=== PATIENT | female | born 1930 | race Caucasian/White ===

== ENCOUNTER 2016-09-02 19:43 | Emergency (ER) | payer MEDICARE, OTHER ==
[2016-09-02 20:30] LABS: BASOPHILS 0 % (0.0-2.0); EOSINOPHILS 0.4 % (0-7); HEMATOCRIT 32.2 % (36.0-48.0); HEMOGLOBIN 11.1 g/dL (12-16); IMMATURE GRANULOCYTES 0.2 % (0-5); LYMPHOCYTES 9.2 % (15-50); MCH 29.1 pg (26.0-34.0); MCHC 34.5 g/dL (31.0-37.0); MCV 84.3 fL (80.0-100.0); MEAN PLATELET VOLUME 9.7 fL (7.4-10.4); MONOCYTES 6.4 % (2-11); NEUTROPHILS 83.8 % (40-80); PLATELET COUNT 293 10x3/uL (130-400); RBC 3.82 10x6/uL (4.00-5.40); RDW 13.4 % (11.5-14.5); WBC 8.3 10x3/uL (4.8-10.8)
[2016-09-02 20:45] LABS: ALBUMIN 3.6 g/dL (3.4-5.0); ALKALINE PHOSPHATASE 82 U/L (46-116); ALT (SGPT) 23 U/L (10-68); BILIRUBIN - TOTAL 0.87 mg/dL (0.2-1.3); CALC OSMOLALITY 247 mosm/kg (275-300); CALCIUM 8.8 mg/dL (8.5-10.1); CARBON DIOXIDE 20.9 mmol/L (21.0-32.0); CHLORIDE - SERUM 89 mmol/L (98-107); CREATININE - SERUM 1.2 mg/dL (0.6-1.3); GLUCOSE 133 mg/dL (74-106); POTASSIUM - SERUM 4.1 mmol/L (3.5-5.1); PROTEIN - SERUM 7.4 g/dL (6.4-8.2); SODIUM 121 mmol/L (136-145); UREA NITROGEN 18 mg/dL (7-18); eGFR NON AFRICAN AMERICAN 45 mL/min (90-120)
[2016-09-02 20:56] LABS: AMYLASE - SERUM 85 U/L (25-115); CHOLESTEROL, TOTAL 196 mg/dL (0-200); CKMB 4.7 U/L (0.0-3.6); CREATINE KINASE 153 UL (21-215); HDL CHOLESTEROL 49 mg/dL (32-96); LDL CHOLESTEROL 126 mg/dL (0-100); LDL-HDL RATIO 2.6 ratio (1.5-3.5); LIPASE 150 U/L (73-393); PRO BNP 1787 pg/mL (0-450); TRIGLYCERIDE 109 mg/dL (30-200); TROPONIN-I 0.018 ng/mL (0.000-0.060)
== END 2016-09-02 21:20 | disposition home or self-care (01) ==
LOC: D.ER 19:43
PROVIDERS: Family Medicine
DX: R07.89 Other chest pain (principal); I10 Essential (primary) hypertension

== ENCOUNTER 2016-09-05 01:04 | Emergency (ER) | payer MEDICARE, OTHER ==
[2016-09-05 02:02] LABS: BASOPHILS 0.2 % (0.0-2.0); EOSINOPHILS 2.1 % (0-7); HEMOGLOBIN 11.7 g/dL (12-16); IMMATURE GRANULOCYTES 0.5 % (0-5); LYMPHOCYTES 15.2 % (15-50); MCHC 34.4 g/dL (31.0-37.0); MCV 84.2 fL (80.0-100.0); MEAN PLATELET VOLUME 9.8 fL (7.4-10.4); MONOCYTES 14.8 % (2-11); NEUTROPHILS 67.2 % (40-80); PLATELET COUNT 266 10x3/uL (130-400); RBC 4.04 10x6/uL (4.00-5.40); RDW 13.4 % (11.5-14.5); WBC 5.6 10x3/uL (4.8-10.8)
[2016-09-05 02:25] LABS: APPEARANCE HAZY (CLEAR); BILIRUBIN NEGATIVE (NEGATIVE); COLOR YELLOW (YELLOW); GLUCOSE NEGATIVE (NEGATIVE); KETONE NEGATIVE (NEGATIVE); LEUKOCYTE ESTERASE NEGATIVE (NEGATIVE); NITRITE NEGATIVE (NEGATIVE); PROTEIN NEGATIVE (NEGATIVE); UROBILINOGEN NORMAL (NORMAL)
[2016-09-05 02:35] LABS: ALBUMIN 3.7 g/dL (3.4-5.0); ALKALINE PHOSPHATASE 89 U/L (46-116); ALT (SGPT) 32 U/L (10-68); BILIRUBIN - TOTAL 0.62 mg/dL (0.2-1.3); CALC OSMOLALITY 252 mosm/kg (275-300); CALCIUM 8.8 mg/dL (8.5-10.1); CHLORIDE - SERUM 86 mmol/L (98-107); CREATININE - SERUM 1.5 mg/dL (0.6-1.3); GLUCOSE 114 mg/dL (74-106); POTASSIUM - SERUM 3.5 mmol/L (3.5-5.1); PROTEIN - SERUM 7.5 g/dL (6.4-8.2); SODIUM 123 mmol/L (136-145); UREA NITROGEN 25 mg/dL (7-18); eGFR NON AFRICAN AMERICAN 35 mL/min (90-120)
[2016-09-05 02:40] LABS: AMORPHOUS SEDIMENT >1+ /lpf (NONE SEEN); BACTERIA FEW /hpf (NONE SEEN); EPITHELIAL CELLS OCC /hpf (0-5); HYALINE CAST RARE /lpf (NONE SEEN); RED CELLS - URINE OCC /hpf (0-5); WHITE CELLS - URINE OCC /hpf (0-5)
[2016-09-05 02:45] LABS: AMYLASE - SERUM 87 U/L (25-115); CREATINE KINASE 304 UL (21-215); LIPASE 212 U/L (73-393); PRO BNP 436 pg/mL (0-450)
[2016-09-05 02:46] LABS: TROPONIN-I < 0.017 ng/mL (0.000-0.060)
[2016-09-05 02:47] LABS: CKMB 12.1 U/L (0.0-3.6)
[2016-09-05] MEDS ORDERED: FLAGYL500 MG PO (03:02)
[2016-09-06] MEDS ORDERED: ZOFRAN4 MG PO (03:04)
[2016-09-06] MEDS ORDERED: PHENERGAN25 M1 PO (03:05)
[2016-09-06] MEDS ORDERED: HYDROCHLOROTH12.5 M1 (03:06)
[2016-09-06] MEDS ORDERED: BENICAR40 MG PO (03:06)
[2016-09-06] MEDS ORDERED: CIPRO500 MG PO (03:07)
[2016-09-06] MEDS ORDERED: CATAPRES0.1 MG PO (03:12)
[2016-09-06] MEDS ORDERED: ACETAMINOPHEN325 MG PO (03:13)
[2016-09-06 12:32] VITALS: BMI 23.5
== END 2016-09-05 05:05 | disposition home or self-care (01) ==
LOC: D.ER 01:04
PROVIDERS: Family Medicine
DX: K57.92 Diverticulitis of intestine, part unspecified, without perforation or abscess without bleeding (principal); R11.2 Nausea with vomiting, unspecified; R19.7 Diarrhea, unspecified; I10 Essential (primary) hypertension

== ENCOUNTER 2016-09-05 22:58 | Inpatient (IN) | payer MEDICARE, OTHER ==
[~2016-09-05] VITALS: Ht 154.9 cm; Wt 56.5 kg
--- NOTE | ~2016-09-05 | DS ---
PATIENT:ANNEMARIE FIGUEROA :30 MEDICAL RECORD: [id number] DISCHARGE SUMMARY ADMISSION DATE: 09/06/16 DISCHARGE DATE: 09/10/16 DISCHARGE DIAGNOSES: 1. Sigmoid diverticulitis 2. Symptomatic hyponatremia. 3. Hypokalemia due to gastrointestinal losses. 4. Recurrent nausea and vomiting. 5. Hypertension. HOSPITAL COURSE: An 86-year-old female who had been in the ER 3 days in a row was admitted because of continued nausea, vomiting and hyponatremia. She be given antiemetics without improvement developed some vague left lower abdominal pain as well. On admission, she had a white count 6600. Potassium was 4, BUN was 17 and creatinine of 1.3. Sodium was 119. Cardiac enzymes were negative. Chest x-ray was unremarkable. CT of the abdomen showed diverticulosis with diverticulitis in the sigmoid colon, hiatal hernia. She was placed on fluid restriction and normal saline and electrolyte replacement. She was also placed on IV antibiotics for diverticulitis. She gradually improved, sodium has been tapered off and currently this morning, sodium was up to 134, potassium is 3.6. She is feeling much better, tolerating diet. Blood pressure has also multiple intermittently with systolics. Her diuretic was discontinued. She was placed on Bystolic of 2.5 mg daily, and was doing very well from that standpoint. She is discharged in improved condition and to follow up BMP with Dr. Lyons in 1 week. DISCHARGE MEDICATIONS: Bystolic 2.5 mg daily, Celexa 20 mg a day, K-Tab 10 mEq p.o. daily for 4 days and discontinue, Zofran 4 mg q.8 hours for nausea, Benicar 40 mg p.o. daily, Cipro 500 mg p.o. q.12 hours for 7 days and discontinue, clonidine 0.1 q.4 hours p.r.n. systolic greater than 180, Tylenol 325 q.6 p.r.n. DIET: Regular. ACTIVITY: Progress as tolerated. TRANSINT:[id number] Voice Confirmation ID: [id number] DOCUMENT ID: [id number] RUEL CERVANTES MD CC: [id number] DICTATION DATE: 09/10/16 1302 PHYS ASST: 09/11/16 0223 DIS IN 09/10/16 [id number] [place] [address]
[~2016-09-05 22:58] MED LIST: FLAGYL500 MG PO
[2016-09-06 00:39] LABS: BASOPHILS 0.2 % (0.0-2.0); EOSINOPHILS 0.2 % (0-7); HEMATOCRIT 35.3 % (36.0-48.0); HEMOGLOBIN 12.6 g/dL (12-16); IMMATURE GRANULOCYTES 0.5 % (0-5); LYMPHOCYTES 8.8 % (15-50); MCH 29.8 pg (26.0-34.0); MCHC 35.7 g/dL (31.0-37.0); MCV 83.5 fL (80.0-100.0); MEAN PLATELET VOLUME 9.9 fL (7.4-10.4); MONOCYTES 12.9 % (2-11); NEUTROPHILS 77.4 % (40-80); PLATELET COUNT 291 10x3/uL (130-400); RBC 4.23 10x6/uL (4.00-5.40); RDW 13.4 % (11.5-14.5); WBC 6.6 10x3/uL (4.8-10.8)
[2016-09-06 01:20] LABS: ALBUMIN 3.7 g/dL (3.4-5.0); ALKALINE PHOSPHATASE 88 U/L (46-116); ALT (SGPT) 32 U/L (10-68); CALCIUM 8.9 mg/dL (8.5-10.1); CARBON DIOXIDE 22.4 mmol/L (21.0-32.0); CREATINE KINASE 298 UL (21-215); CREATININE - SERUM 1.3 mg/dL (0.6-1.3); GLUCOSE 117 mg/dL (74-106); PRO BNP 557 pg/mL (0-450); PROTEIN - SERUM 7.7 g/dL (6.4-8.2); TROPONIN-I < 0.017 ng/mL (0.000-0.060); eGFR NON AFRICAN AMERICAN 41 mL/min (90-120)
[2016-09-06 01:21] LABS: UREA NITROGEN 17 mg/dL (7-18)
[2016-09-06 01:22] LABS: CALC OSMOLALITY 242 mosm/kg (275-300); CHLORIDE - SERUM 85 mmol/L (98-107); SODIUM 119 mmol/L (136-145)
[2016-09-06 01:23] LABS: CKMB 10.9 U/L (0.0-3.6)
[2016-09-06] MEDS ORDERED: ZOFRAN4 MG PO (03:04)
[2016-09-06] MEDS ORDERED: PHENERGAN25 M1 PO (03:05)
[2016-09-06] MEDS ORDERED: BENICAR40 MG PO (03:06)
[2016-09-06] MEDS ORDERED: HYDROCHLOROTH12.5 M1 (03:06)
[2016-09-06] MEDS ORDERED: CIPRO500 MG PO (03:07)
[2016-09-06] MEDS ORDERED: CATAPRES0.1 MG PO (03:12)
[2016-09-06] MEDS ORDERED: ACETAMINOPHEN325 MG PO (03:13)
[2016-09-06 04:10] VITALS: BP 149/63; BMI 23.5
--- NOTE | 2016-09-06 05:00 | NUR ---
PT ARRIVED TO FLOOR FROM ER VIA STRETCHER. HOME MEDS/LAST DOSES REVIEWED AND DOCUMENTED. HISTORY AND ASSESSMENT COMPLETE PER FLOW-SHEET. GAVE NAUSEA AND PAIN MED ONCE. NO OTHER NEEDS. WILL CONTINUE TO MONITOR.
--- NOTE | 2016-09-06 07:40 | NUR ---
Lying in bed awake, report nausea is somewhat better at this time. Continues with clear liquids. Instructed to call for assist up to bathroom. Verbalized understanding.
[2016-09-06 08:58] VITALS: BP 170/80
--- NOTE | 2016-09-06 10:15 | NUR ---
order noted for SCD hose bilateral, applied and taught patient on purpose. No skin abnormalities assessed to lower ext.
[2016-09-06 12:30] VITALS: BP 181/83
[2016-09-06 12:32] VITALS: Ht 154.9 cm; Wt 56.5 kg
--- NOTE | 2016-09-06 13:15 | NUR ---
BP now 155/73. patient stating she has off and on been seeing " red graffeti" like in front of her eyes. First time reporting this today, states not sure if it came after she had the dose of Phenergan or not. No other complaints. Vital signs stable.
[2016-09-06 13:16] VITALS: BP 155/73
--- NOTE | 2016-09-06 14:49 | NUR ---
lying in bed, states the red "things " are residing. No complaints.
--- NOTE | 2016-09-06 17:15 | NUR ---
Sitting up eating supper, verbalized no problems with her vision. " I don't know what that was all about, I'm not having any problems now."
[2016-09-06 17:21] VITALS: BP 153/63
[2016-09-06 20:00] VITALS: BP 153/69
--- NOTE | 2016-09-06 22:30 | NUR ---
EVELYNEsther STATED HER PAIN WAS 5/10 AND WANTED A TYLENOL. ADMINISTERED PRESCRIBED. NO DISTRESS NOTED. DENIED FURTHER NEEDS INTRUCTED TO CALL IF NEEDED ANYTHING. VERBALIZED UNDERSTANDING. BED LOW, LOCKED, CALL LIGHT IN REACH.
--- NOTE | 2016-09-06 23:09 | NUR ---
PT RESTING QUIETLY WITHOUT C/O OR DISTRESS NOTED. FEW NEEDS VOICED. CALL LIGHT WITHIN REACH. WILL CONT TO MONITOR.
--- NOTE | 2016-09-06 23:32 | NUR ---
REC'D PATIENT LYING IN BED WITH FAMILY AT BEDSIDE. NO DISTRESS NOTED. DENIED PAIN AT THIS TIME. DENIED FURTHER NEEDS AT THIS TIME. INSTRUCTED TO CALL IF NEEDED ANYTHING. VERBALIZED UNDERSTANDING. BED LOW, LOCKED, CALL LIGHT IN REACH.
[2016-09-07] VITALS: BP 116/64
--- NOTE | 2016-09-07 00:37 | NUR ---
PATIENT RESTING IN BED COMFORTABLY. DENIED PAIN AT THIS TIME. DENIED FURTHER NEEDS. NO DISTRESS NOTED. INSTRUCTRED TO CALL IF NEEDED ANYTHING. VERBLALIZED UNDERSTANDING. BED LOW, LOCKED, CALL LIGHT IN REACH.
--- NOTE | 2016-09-07 02:23 | NUR ---
PATIENT IS RESTING IN BED. TOOK HER TO THE BATHROOM EARLIER AND SHE HAD A SMALL BM WHILE I WAS IN THE ROOM HANGING HER MEDS @0150. DENIES FURTHER NEEDS, DENIES PAIN, INSTRUCTED TO CALL IF NEEDED ANYTHING.
[2016-09-07 04:00] VITALS: BP 122/59
[2016-09-07 05:54] LABS: BASOPHILS 0 % (0.0-2.0); EOSINOPHILS 1.1 % (0-7); HEMATOCRIT 32.3 % (36.0-48.0); HEMOGLOBIN 11.2 g/dL (12-16); IMMATURE GRANULOCYTES 0.5 % (0-5); LYMPHOCYTES 16.2 % (15-50); MCH 29.5 pg (26.0-34.0); MCHC 34.7 g/dL (31.0-37.0); MEAN PLATELET VOLUME 9.6 fL (7.4-10.4); MONOCYTES 12.9 % (2-11); NEUTROPHILS 69.3 % (40-80); PLATELET COUNT 247 10x3/uL (130-400); RDW 13.5 % (11.5-14.5); WBC 5.5 10x3/uL (4.8-10.8)
[2016-09-07 06:21] LABS: ANION GAP 13.5 mmol/L (8-16); CARBON DIOXIDE 23.6 mmol/L (21.0-32.0); CREATININE - SERUM 1.3 mg/dL (0.6-1.3); POTASSIUM - SERUM 4.1 mmol/L (3.5-5.1)
--- NOTE | 2016-09-07 07:20 | HP ---
PATIENT: ANNEMARIE FIGUEROA MEDICAL RECORD: [id number] ACCOUNT: [id number] LOCATION:[address] : 30 ADMISSION DATE: 09/06/16 HISTORY AND PHYSICAL EXAMINATION REASON FOR ADMISSION: Nausea, vomiting, and abdominal pain. HISTORY OF PRESENT ILLNESS: The patient is an 86-year-old female, who sees Dr. Loyd Lyons routinely. She states that she had some nausea recently and was scheduled for an upper endoscopy. That was due for today, but she had canceled it. For the last 3 days, she had been to the [facility] ER because of nausea symptoms. She had been given antiemetics without improvement. Her sodium was noted to be low as well and her diuretic was ____. She came back in at 3:00 this morning and the ED physician admitted her. She had some vague abdominal pain. Her stools have become very small in caliber. She seemingly cannot keep oral medications down. She denied fever or blood per rectum. She states also her blood pressure had been quite elevated recently. PAST MEDICAL HISTORY: Multiple colon polyps in the past and last colonoscopy, she states was over 10 years ago, history of GERD, essential hypertension, volatile at times, hyperlipidemia, tachycardia, diverticulosis, hyponatremia, shingles, and Escherichia coli urinary tract infection. PAST SURGICAL HISTORY: She has had cataract surgery OU, otherwise negative. SOCIAL HISTORY: She is , lives with her in [place]. She is retired. She has never smoked or used alcohol. FAMILY HISTORY: Mother at 75 with a stroke. Father of lung cancer. He was a smoker. HOME MEDICATIONS: Phenergan 25 mg tablet q.4 hours for nausea, Benicar 40 mg daily, Catapres 0.1 q.4 hours for systolic over 170, HCTZ 12.5 mg p.o. q.a.m., omeprazole 20 mg daily, vitamin B12 of 1 cc IM weekly, citalopram 20 mg p.o. daily, hydrocodone 5/325 one q.6 hours for pain from shingles, and calcium 500 mg p.o. b.i.d. REVIEW OF SYSTEMS: GENERAL: She has been fatigued without fever and poor appetite. HEENT: No recent visual change, sinus congestion, sore throat, or hearing difficulty. RESPIRATORY: No SOB or cough. CARDIAC: No exertional chest pain, claudication, or edema. GASTROINTESTINAL: She has had nausea with dry heaves. She has had no hematemesis. She has had smaller stool in caliber the last 3 days. There was some vague left lower quadrant abdominal pain. CARDIAC: No exertional chest pain. GENITOURINARY: No dysuria or incontinence. GYNECOLOGIC: No vaginal bleeding. MUSCULOSKELETAL: Denies arthralgias. NEUROLOGICAL: No history of stroke, TIA, or vascular headaches. INTEGUMENTARY: No rash or itching. PSYCHIATRIC: Denies depress mood. PHYSICAL EXAMINATION: HISTORY AND PHYSICAL [id number] ANNEMARIE FIGUEROA VITAL SIGNS: Temperature 97.7 Fahrenheit orally, pulse 79 and regular, respirations 22, blood pressure 149/63 with a sat of 97% on room air. HEENT: Normocephalic. Eyes are clear with cataract lens implants noted. Sclerae nonicteric. Oropharynx shows dry mucous membranes. NECK: Supple. CHEST: Clear. HEART: Regular rate without MGR. PMI appropriate. ABDOMEN: Somewhat distended with normal bowel sounds. She is minimally tender in left lower quadrant over the sigmoid. No rebound noted. EXTREMITIES: No CC&E. NEUROLOGIC: The patient is oriented to person, place, and time. Motor and sensory appears intact. Gait is normal. LABORATORY DATA: Labs shows a white count of 6600 with a slight left shift. H&H is 12.6 and 35.3. Sodium is 119. Potassium is 4, CO2 is 22.4, BUN and creatinine are 17 and 1.3, GFR is 41, and glucose of 117, nonfasting. Lactic acid is 1.4. CPK is 298, CK-MB is 10.9 with a normal troponin of 0.017. ProBNP is 557. DIAGNOSTIC DATA: Chest x-ray is unremarkable. CT of the abdomen showed a small hiatal hernia, diverticuli identified involving the sigmoid colon with some stranding suggesting diverticulitis. ASSESSMENT: 1. Symptomatic hyponatremia. 2. Recurrent nausea and vomiting. 3. Probable sigmoid diverticulitis/diverticulosis. 4. Hypertension. 5. Recent shingles. PLAN: The patient will be admitted for fluid restriction, normal saline for sodium correction. We will hold her diuretics. Empiric IV metronidazole and Cipro for diverticulitis. Further workup pending clinical course. TRANSINT:[id number] Voice Confirmation ID: [id number] DOCUMENT ID: [id number] RUEL CERVANTES MD at 0720 CC: [id number] DICTATION DATE: 09/06/16806 MULTIPLE COIL WINDER: 09/06/16 0911 ADM IN [id number] [place] [address]
--- NOTE | 2016-09-07 07:43 | NUR ---
IV PATENT. SCDS ON. CALL LIGHT IN REACH. WILL CONT. PLAN OF CARE.
[2016-09-07 08:00] VITALS: BP 130/70
--- NOTE | 2016-09-07 08:20 | NUR ---
PT RESTING IN BED WITH EYES OPEN CALL LIGHT IN REACH WILL MONITER
[2016-09-07 12:00] VITALS: BP 157/73
--- NOTE | 2016-09-07 14:41 | NUR ---
PT RESTING IN BED WITH EYES OPEN CALL LIGHT IN REACH NO PROBLEMS WILL MONITER
[2016-09-07 15:59] VITALS: BP 155/74
[2016-09-07 20:27] VITALS: BP 169/89
[2016-09-08] VITALS (7 sets, daily range): BP systolic 140–169; BP diastolic 68–82
--- NOTE | 2016-09-08 02:11 | NUR ---
PT RESTING WELL WITHOUT C/O OR DISTRESS NOTED. CALL LIGHT WITHIN REACH. NO NEEDS VOICED. WILL MONITOR.
--- NOTE | 2016-09-08 03:24 | NUR ---
ASSESSMENT COMPLETE, CHARACTER IMPERSONATOR ASSISTING PT TO RESTROOM, WILL CONTINUE TO MONITOR
--- NOTE | 2016-09-08 07:47 | NUR ---
PATIENT RESTING IN BED. VOICES NO NEEDS AT THIS TIME HAS CALL LIGHT WITHIN REACH. ALERT/ORIENT X4. LEFT FOREARM PERIPHERAL LINE WITH NS RUNNING AT 75CC/HR.
[2016-09-08 11:08] LABS: ANION GAP 15.7 mmol/L (8-16); CALCIUM 8.1 mg/dL (8.5-10.1); CARBON DIOXIDE 19.7 mmol/L (21.0-32.0)
[2016-09-08 11:13] LABS: POTASSIUM - SERUM 3.4 mmol/L (3.5-5.1)
--- NOTE | 2016-09-08 12:33 | NUR ---
IV PATENT. NO NEEDS VOICED. CALL LIGHT IN REACH. WILL MONITOR.
--- NOTE | 2016-09-08 13:00 | NUR ---
DR BOLAÑOS INTO SEE PATIENT. NEW ORDERS RECEIVED
--- NOTE | 2016-09-08 16:09 | NUR ---
NURSE ASST HELPED PATIENT WITH SHOWER.
--- NOTE | 2016-09-08 19:50 | NUR ---
ASSESSMENT DONE. PT A/O. ASSISTED PT TO RESTROOM. PT AMBULATED WITHOUT ASSIST. GAIT STEADY. DENIES N/V OR ABD PAIN. AFTER PT BACK IN BED SCD'S RE-APPLIED, CALL LIGHT PLACED WITH IN REACH. PT REQEST A CUP OF ICE. DENIES OTHER NEEDS AT THIS TIME. WILL CONT. TO MONITOR.
--- NOTE | 2016-09-08 23:39 | NUR ---
PT REQUEST B/P BE RE-CHECKED SINCE GIVEN CLONIDINE AT 2151. B/O 140/76. PT A/O. DENIES PAIN OR DISCOMFORT AT THIS TIME. CALL LIGHT WITH IN REACH. WILL CONT. TO MONITOR.
[2016-09-09 00:30] VITALS: BP 119/62
--- NOTE | 2016-09-09 01:17 | NUR ---
PT USED CALL BUTTON, REQUESTED ASSISTED WITH REMOVING SCD'S SO SHE COULD AMB TO RESTROOM. PT AMBULATED WITH STEADY GAIT. NO WEAKNESS NOTED. SCD'S RE-APPLIED. CALL LIGHT WITH IN REACH. WILL CONT. TO MONITOR.
--- NOTE | 2016-09-09 02:52 | NUR ---
PT SLEEPING. EYES CLOSED. RESP EVEN AND UNLABORED. NO DISTRESS NOTED. CALL LIGHT WITH IN REACH. WILL CONT. TO MONITOR.
--- NOTE | 2016-09-09 03:14 | NUR ---
CLIENT MANAGER LARGE LAW AT BEDSIDE FOR VS, NEEDS ADDRESSED. CALL LIGHT IN REACH. WILL CONT TO MONITOR.
[2016-09-09 04:30] VITALS: BP 191/80
--- NOTE | 2016-09-09 06:06 | NUR ---
B/P 191/80. PT DENIES CP OR SOB. CLONIDINE GIVEN PER ORDER. RUNNING NSR AT 77 ON TELEMETRY.
[2016-09-09 06:34] LABS: BASOPHILS 0 % (0.0-2.0); EOSINOPHILS 1.6 % (0-7); HEMATOCRIT 31.5 % (36.0-48.0); IMMATURE GRANULOCYTES 0.5 % (0-5); LYMPHOCYTES 10.5 % (15-50); MCH 29.3 pg (26.0-34.0); MCHC 34.9 g/dL (31.0-37.0); MEAN PLATELET VOLUME 9.7 fL (7.4-10.4); MONOCYTES 10.5 % (2-11); NEUTROPHILS 76.9 % (40-80); PLATELET COUNT 267 10x3/uL (130-400); RBC 3.75 10x6/uL (4.00-5.40); RDW 13.6 % (11.5-14.5); WBC 7.7 10x3/uL (4.8-10.8)
[2016-09-09 06:48] LABS: ANION GAP 14.7 mmol/L (8-16); CALCIUM 7.7 mg/dL (8.5-10.1); CARBON DIOXIDE 20.5 mmol/L (21.0-32.0); CREATININE - SERUM 1.1 mg/dL (0.6-1.3); POTASSIUM - SERUM 3.2 mmol/L (3.5-5.1)
--- NOTE | 2016-09-09 07:50 | NUR ---
AM ROUNDS - PT IN BED AND APPEARS TO BE SLEEPING. MONITOR SHOWING SR, HR 75. BREATHS ARE EQUAL AND NON LABORED. LEFT FA WITH NS AT 75CC/HR. SCD ON. WILL CONTINUE TO MONITOR.
[2016-09-09 08:00] VITALS: BP 131/62
[2016-09-09 12:00] VITALS: BP 125/60
--- NOTE | 2016-09-09 21:11 | NUR ---
PT AWAKE, ALERT, ORIENTED, ASKING ABOUT HER NEW B/P RX BYSTOLIC. SHE IS WANTING TO KNOW IF SHE CAN TAKE IT TWICE A DAY. I EXPLAINED THAT IT IS ONLY ONCE PER DAY, ALONG WITH HER BENICAR. PT NEEDS EDUCATION ON DIETARY SALT INTAKE, AND RESTRICTIONS. PT IS READY TO BE UNHOOKED FROM THE IV NS @ 75MLS/HR. PT IS CONCERNED THAT HER B/P IS STILL NOT GOING TO BE CONTROLLED WITH BENICAR AND BYSTOLIC. I DID TEACHING ON PTS B/P RX AND THE NEED FOR PRN CLONIDINE FOR SYSTOLIC > THAN 170. PTS FAMILY AT BEDSIDE IS ALSO ACTIVE IN HER CARE AND ASKING ABOUT THE MEDS AND DIETARY NEEDS. PT DENIES ANY ACUTE NEEDS AT THIS TIME. CONTINUE TO MONITOR CLOSELY. BED LOW, CALL LIGHT IN REACH,
[2016-09-09 22:46] VITALS: BP 172/84
--- NOTE | 2016-09-10 02:32 | NUR ---
PT HAS CALLED SEVERAL TIMES, HOURLY, REQUESTING TO HAVE HER B/P CHECKED. I ENCOURAGED PT TO NOT DO THIS, FRETTING ABOUT IT WILL ONLY POTENTIALLY INCREASE IT. PT BECAME DEFENSIVE AND COMBATIVE, AND REFUSED TO LISTEN TO ANY TEACHING. A B/P MONITOR HAS BEEN PLACED ON PT TO CHECK HER B/P HOURLY SO THAT PT MAY REMAIN CALM AND BE ABLE TO SEE HER B/P CHECKS. CONTINUE TO MONITOR.
[2016-09-10 02:33] VITALS: BP 130/63
[2016-09-10 06:37] VITALS: BP 136/74
--- NOTE | 2016-09-10 07:56 | NUR ---
AM ROUNDS - PT IN BED, AWAKE AND ALERT. PT ON RA, LEFT FA IV WITH NS 30CC/HR. MONITOR SHOWING SR, HR 66. NO NEEDS AT THIS TIME. WILL CONTINUE TO MONITOR.
[2016-09-10 08:02] VITALS: BP 129/61
--- NOTE | 2016-09-10 08:08 | NUR ---
DR CERVANTES HERE TO SEE PATIENT.
--- NOTE | 2016-09-10 08:17 | NUR ---
IV TO SALINE LOCK ORDERED, PATIENT EATING BREAKFAST, DENIES ANY NEEDS.
[2016-09-10 08:49] LABS: ANION GAP 10.6 mmol/L (8-16); CALCIUM 8.5 mg/dL (8.5-10.1)
[2016-09-10 08:50] LABS: POTASSIUM - SERUM 3.6 mmol/L (3.5-5.1)
--- NOTE | 2016-09-10 09:50 | NUR ---
CALL PLACED TO DR CERVANTES OFFICE FOR POSSIBLE DISCHARGE. SPOKE WITH [facility] WHO WILL LET DR CERVANTES KNOW.
--- NOTE | 2016-09-10 10:54 | NUR ---
FAMILY MEMBER AT BEDSIDE TO ASSIST WITH SHOWER. SHOWER CHAIR PLACED IN BATHROOM. INSTRUCTED TO USE EMERGENCY LIGHT IF NEEDED.
[2016-09-10 12:04] VITALS: BP 115/59
--- NOTE | 2016-09-10 12:31 | NUR ---
DENIES NEEDS AT PRESENT TIME, AWAITING DR CERVANTES TO MAKE ROUNDS FOR POSSIBLE DISCHARGE.
[2016-09-10] MEDS ORDERED: CELEXA20 MG PO (12:57)
[2016-09-10] MEDS ORDERED: BYSTOLIC2.5 MG PO (12:57)
[2016-09-10] MEDS ORDERED: K-TAB10 MEQ PO (12:58)
--- NOTE | 2016-09-10 14:17 | NUR ---
VERBAL AND WRITTEN DISHCARGE INSTRUCTIONS GIVEN TO PATIENT AND GRANDSON. SALINE LOCK REMOVED WITH CATH TIP INTACT. DISCHARGED HOME VIA WHEELCHAIR.
--- NOTE | 2016-09-10 19:45 | NUR ---
Patient Name: ANNEMARIE FIGUEROA Admission Status: ER Accout number: [id number] Admission Date: 09-06-2016 : 1930 Admission Diagnosis:DVTRCLI OF INTEST, PART UNSP, W/O PERF OR ABSCESS W/O B Attending: SAV Current LOS: 4 Anticipated DC Date: 09-10-2016 Planned Disposition: Home Primary Insurance: MEDICARE A & B LATE ENTRY: Discharge Planning Comments: * Is the patient Alert and Oriented? Yes 0 * How many steps to enter\exit or inside your home? RAMP 0 * PCP DR. MONSON 0 * Pharmacy [facility] 0 * Preadmission Environment Home with Family 0 * ADLs Independent 0 * Equipment None 0 * Other Equipment NO MEDICAL EQUIPMENT PROVIDER PREFERENCE 0 * List name and contact numbers for known caregivers / representatives who currently or will assist patient after discharge: ABIGAIL ASHER, 0 * Community resources currently utilized None 0 * Please name any agencies selected above. NONE 0 * Additional services required to return to the preadmission environment? No 0 * Can the patient safely return to the preadmission environment? Yes 0 * Has this patient been hospitalized within the prior 30 days at any hospital? No 0 CM MET WITH PT IN ROOM TO DISCUSS DISCHARGE PLANNING AND NEEDS. PT REPORTS LIVING AT HOME INDEPENDENTLY WITH HER SPOUSE. PT HAS NO MEDICAL EQUIPMENT AND NO OUTSIDE SERVICES ASSISTING IN THE HOME. CM DISCUSSED AVAILABILITY OF HOME HEALTH, REHAB SERVICES AND MEDICAL EQUIPMENT. PT DENIES DISCHARGE NEEDS, REPORTS HER GRANDSON IS HERE TO PICK HER UP FOR DISCHARGE HOME. IMPORTANT MESSAGE FROM MEDICARE PROVIDED AND EXPLAINED. Circulation Clerk: Julián Colon
== END 2016-09-10 14:20 | disposition home or self-care (01) | DRG 392 ==
LOC: D.ER 22:58 → D.M2 09-06 02:06
PROVIDERS: Family Medicine; ADMIT Family Medicine
DX: K57.92 Diverticulitis of intestine, part unspecified, without perforation or abscess without bleeding (principal); E87.1 Hypo-osmolality and hyponatremia; E87.6 Hypokalemia; I10 Essential (primary) hypertension; Z86.010 Personal history of colon polyps; K21.9 Gastro-esophageal reflux disease without esophagitis; E78.5 Hyperlipidemia, unspecified